=== PATIENT | female | born 1970 | race Asian ===

== ENCOUNTER 2021-07-24 07:38 | Day surgery (SDC) | payer BC ==
[2021-07-19 15:42] VITALS: BMI 35.4
[2021-07-24 08:47] VITALS: TEMP 98.4
[2021-07-24 09:05] VITALS: BP 171/67; PULSE 65
== END 2021-07-24 09:10 | disposition home or self-care (01) ==
LOC: FASU-ENDO 07:38
PROVIDERS: ATTEND Internal Medicine Gastroenterology
PROC: 0DJD8ZZ Inspection of Lower Intestinal Tract, Via Natural or Artificial Opening Endoscopic (ICD-10-PCS; principal; 2021-07-24 08:22)
DX: Z12.11 Encounter for screening for malignant neoplasm of colon (principal)
CPT/HCPCS: 81025; 82962